=== PATIENT | male | born 1955 | race Caucasian/White ===

== ENCOUNTER 2019-08-04 04:29 | Emergency (ER) | payer MEDICARE ==
[~2019-08-04] VITALS: Wt 70.3 kg
[2019-08-04 05:30] LABS: ALBUMIN 3.7 gm/dl (3.1-4.5); ALKALINE PHOSPHATASE 150 U/L (45-117); BUN 6 mg/dl (7-24); CHLORIDE 101 mmol/L (98-107); CREATININE 0.97 mg/dL (0.70-1.30); POTASSIUM 4.5 mmol/L (3.5-5.1); SGOT/AST 21 IU/L (3-35); SGPT/ALT 27 U/L (12-78); SODIUM 135 mmol/L (136-145); TOTAL PROTEIN 7.9 gm/dL (6.4-8.2)
[2019-08-04 05:52] LABS: BASO # 0.1 10*3/uL (0.0-0.1); BASO % 0.8 % (0.0-1.0); EOS # 0.4 10*3/uL (0.0-0.4); EOS % 5.2 % (1.0-4.0); HEMATOCRIT 58.4 % (42.0-52.0); HEMOGLOBIN 19.1 g/dl (14.0-18.0); LYMPH # 2.2 10*3/uL (1.3-4.4); LYMPH % 26.6 % (27.0-41.0); MEAN CELL VOLUME 104.3 fl (80.0-94.0); MEAN CORPUSCULAR HGB 34.1 pg (27.0-31.0); MEAN CORPUSCULAR HGB CONC 32.7 g/dl (33.0-37.0); MONO # 0.4 10*3/uL (0.1-1.0); MONO % 4.4 % (3.0-9.0); NEUT # 5.1 10*3/uL (2.3-7.9); PLATELET COUNT AUTOMATED 326 10*3/uL (130-400); RED CELL DISTRI WIDTH 14.1 % (0-14.5); WHITE BLOOD COUNT 8.3 10*3/uL (4.8-10.8)
== END 2019-08-04 06:15 | disposition short-term general hospital (02) ==
LOC: ED 04:29
PROVIDERS: Emergency Medicine
DX: T25.231A Burn of second degree of right toe(s) (nail), initial encounter (principal); T25.222A Burn of second degree of left foot, initial encounter; T20.20XA Burn of second degree of head, face, and neck, unspecified site, initial encounter; T22.212A Burn of second degree of left forearm, initial encounter; T25.232A Burn of second degree of left toe(s) (nail), initial encounter; T20.25XA Burn of second degree of scalp [any part], initial encounter; T25.121A Burn of first degree of right foot, initial encounter; J44.9 Chronic obstructive pulmonary disease, unspecified; R06.03 Acute respiratory distress; I10 Essential (primary) hypertension; F17.200 Nicotine dependence, unspecified, uncomplicated; X00.1XXA Exposure to smoke in uncontrolled fire in building or structure, initial encounter; Y93.89 Activity, other specified; Y92.098 Other place in other non-institutional residence as the place of occurrence of the external cause; Y99.8 Other external cause status